=== PATIENT | male | born 1960 | race Two or more races ===

== ENCOUNTER 2022-06-21 14:43 | Emergency (ER) | payer MEDICAID, OTHER ==
[~2022-06-21] VITALS: Ht 170.2 cm; Wt 130.0 kg
[2022-06-21 15:34] LABS: Hematocrit 44.1 % (41.0-53.0); Hemoglobin 15.2 g/dL (13.5-17.5); Mean Corpuscular Hemoglobin 31.8 pg (28.0-32.0); Mean Corpuscular Hgb Conc. 34.4 g/dL (32.0-36.0); Mean Corpuscular Volume 92.2 fL (80.0-100.0); Red Blood Cells 4.78 10^6/uL (4.5-5.90); Red Cell Distribution Width 16.6 % (11.8-14.3); White Blood Cell 10.8 10^3/uL (4.4-10.8)
[2022-06-21 15:52] LABS: Basophils % (manual) 0 (0.0-2.0); Blast Cells 0; Metamyelocytes % 0; Myelocytes % 0; Promyelocytes % 0; Reactive Lymphocytes 0
[2022-06-21 15:54] LABS: INR 0.98 (0.9-1.15); Partial Thromboplastin Time 26.6 sec (24.6-33.4)
[2022-06-21 15:56] LABS: Albumin 3.9 g/dL (3.4-5.0); Calcium 8.8 mg/dL (8.5-10.1); Magnesium 2.4 mg/dL (1.6-2.6); Potassium 4.5 mmol/L (3.5-5.1)
[2022-06-21 15:59] LABS: BUN/Creatinine Ratio 16.1 (10.0-20.0); Bilirubin, Total 0.7 mg/dL (0.2-1.0); Total Protein 7.5 g/dL (6.4-8.2)
[2022-06-21 16:16] LABS: Lymphocytes % (manual) 25 (10.0-50.0)
[2022-06-21 16:17] LABS: Band Neutrophils % (manual) 0; Eosinophils % (manual) 6 (0-7); Monocytes % (manual) 9 (0-12)
[2022-06-21 18:48] VITALS: BP 143/82
== END 2022-06-21 18:53 | disposition home or self-care (01) ==
LOC: EDBD 14:43 → ER 14:43
DX: R07.89 Other chest pain (principal); R42 Dizziness and giddiness; E78.5 Hyperlipidemia, unspecified
CPT/HCPCS: 36415; 71045; 80053; 83735; 83880; 84484; 85007; 85027; 85610; 85730; 93005